=== PATIENT | male | born 1995 | race Caucasian/White ===

== ENCOUNTER 2018-09-03 23:14 | Emergency (ER) | payer SELFPAY ==
[~2018-09-03] VITALS: Ht 180.3 cm; Wt 90.9 kg
[2018-09-03] MEDS ORDERED: INSLAN SQ (23:21)
[2018-09-03] MEDS ORDERED: INSU100V SQ (23:21)
[2018-09-04 00:41] VITALS: BP 141/87
[2018-09-04] MEDS ORDERED: LIDOCAINE 1% 10 ML VIAL INJ ONE (00:45)
[2018-09-04] MEDS ORDERED: POVIDONE-IODINE 10% 15 ML SOLUTION UD TP ONE (00:45)
[2018-09-04] MEDS ORDERED: BACITRACIN 0.9 GM PACKET OINTMENT TP ONE (00:53)
[2018-09-04] MEDS ORDERED: SULFAMETHOX/TRIMETH DS 800-160 MG/TABLET PO ONE (01:00)
[2018-09-04] MEDS ORDERED: CEPHALEXIN MONOHYDRATE 500 MG CAPSULE PO ONE (01:00)
== END 2018-09-04 01:35 | disposition home or self-care (01) ==
LOC: EMS 23:15
DX: L02.11 Cutaneous abscess of neck (principal); E11.9 Type 2 diabetes mellitus without complications; F17.210 Nicotine dependence, cigarettes, uncomplicated; Z79.4 Long term (current) use of insulin
CPT/HCPCS: 10060; 99283; J3490